=== PATIENT | female | born 1965 | race Caucasian/White ===

== ENCOUNTER 2017-10-31 10:32 | Outpatient (CLI) | payer BC, SELFPAY ==
[2017-10-31 11:50] LABS: Anion Gap 9.1 mmol/L (3-11); BUN 20 mg/dL (7-18); CO2 26.9 mmol/L (21.0-32.0); CREATININE 0.87 mg/dL (0.55-1.02); Calcium 8.8 mg/dL (8.5-10.1); Chloride 104 mmol/L (98-107); Glucose 100 mg/dL (70-100); Potassium 4.1 mmol/L (3.5-5.1); Sodium 140 mmol/L (136-145)
== END 2017-10-31 10:52 ==
PROVIDERS: PCP Student in an Organized Health Care Education/Training Program; Visit Provider Student in an Organized Health Care Education/Training Program
DX: R79.89 Other specified abnormal findings of blood chemistry (principal)
CPT/HCPCS: 36415; 80048

== ENCOUNTER 2017-11-24 16:29 | Outpatient (REF) | payer BC, SELFPAY ==
--- NOTE | 2017-11-24 13:00 | PAPFT_PTH ---
PATIENT: WERO MCCARTHY LOC: [facility] U#:[id number] AGE/SX: 52/F ROOM: RE11/24/[address]: JOEL Singh : 1965 BED: DIS: 11/24/2017 SPEC #: [id number] RECD: 11/24/17 17:14 STATUS: SHAHNAZ GRACE #: [id number] JUAN: 11/24/17 13:[address]: Pari Evnas DEPT: [facility] Cytology RECD BY: Yadira Valverde ENTERED: 11/24/17 17:14 SP TYPE: PAPFT BERNARDA DR: Kalli Hightower, Tissues: 1 - CX/ENDOCX FOR PAP SMEARS Procedures: PAP THIN PREP/UVM Screening Comments: [id number]
== END 2017-11-24 16:49 ==
LOC: LBN 16:29
PROVIDERS: PCP Student in an Organized Health Care Education/Training Program; Visit Provider Nurse Practitioner Family
DX: Z12.4 Encounter for screening for malignant neoplasm of cervix (principal)
CPT/HCPCS: 88142

== ENCOUNTER 2017-11-30 10:10 | Outpatient (CLI) | payer BC, SELFPAY ==
--- NOTE | 2017-11-30 10:08 | DI.RAD_ITS ---
SYMPTOMS/DIAGNOSIS: PATELLOFEMORAL PAIN BILATERAL MERCHANT VIEWS OF THE KNEES: Comparison is made with right knee dated [id number]. There is bilateral lateral patellar subluxation and lateral patellar tilt. There is minimal periarticular spurring.
== END 2017-11-30 10:30 ==
PROVIDERS: PCP Student in an Organized Health Care Education/Training Program; Visit Provider Physician Assistant
DX: M25.561 Pain in right knee (principal); M25.562 Pain in left knee; M22.2X2 Patellofemoral disorders, left knee; M22.2X1 Patellofemoral disorders, right knee; S83.001A Unspecified subluxation of right patella, initial encounter; S83.002A Unspecified subluxation of left patella, initial encounter
CPT/HCPCS: 73565

== ENCOUNTER 2017-12-14 00:29 | Outpatient (CLI) | payer BC, SELFPAY ==
--- NOTE | 2017-12-14 11:06 | DI.MAMMO_ITS ---
SYMPTOM/DIAGNOSIS: SCREENING, Z12.31 MAMMOGRAMS: Mammograms were interpreted according to the usual protocol including computer analysis with CAD system, tomosynthesis and C view imaging. The breasts are of moderate density with fairly symmetrical distribution of fibroglandular tissue. No dominant mass or clumped microcalcification is identified in either breast. The current examination is compared with previous examinations including 11/2016 and there has been no gross interval change in appearance in comparison with previous studies. CONCLUSION: No specific evidence of malignancy at this time. Routine screening examinations are suggested at yearly intervals due to the family history of breast carcinoma. Category 1. Breast density, category B. MQSA ASSESSMENT OF FINDINGS: Negative. Category 1. Patient will receive a letter notifying them of these results. BI-RADS category B. There are scattered areas of fibroglandular density.
== END 2017-12-14 00:49 ==
PROVIDERS: PCP Student in an Organized Health Care Education/Training Program; Visit Provider Nurse Practitioner Family
DX: Z12.31 Encounter for screening mammogram for malignant neoplasm of breast (principal); Z80.3 Family history of malignant neoplasm of breast
CPT/HCPCS: 77063; 77067

== ENCOUNTER 2018-02-22 09:14 | Outpatient (CLI) | payer BC, SELFPAY ==
--- NOTE | 2018-02-22 09:10 | DI.RAD_ITS ---
SYMPTOMS/DIAGNOSIS: PAIN RIGHT KNEE: Two views. Comparison 11/16/16. There is moderate narrowing of the medial femoral tibial joint space. Periarticular spurring is seen involving all three joint compartments. The bones appear intact. There are unchanged calcifications adjacent to the fibular head which appear chronic. There is a small joint effusion present. IMPRESSION: Mild degenerative changes of the right knee.
== END 2018-02-22 09:34 ==
PROVIDERS: PCP Nurse Practitioner Adult Health; Visit Provider Physician Assistant Surgical
DX: M25.561 Pain in right knee (principal); M17.11 Unilateral primary osteoarthritis, right knee
CPT/HCPCS: 73560

== ENCOUNTER 2018-04-27 14:53 | Outpatient (REF) | payer BC, SELFPAY | END 2018-04-27 15:13 | LOC: LBN 14:53 | PROVIDERS: PCP Nurse Practitioner Adult Health; Visit Provider Nurse Practitioner Adult Health | DX: N39.0 Urinary tract infection, site not specified (principal) | CPT/HCPCS: 87077; 87086; 87186 ==

== ENCOUNTER 2018-05-04 15:57 | Outpatient (REF) | payer BC, SELFPAY | END 2018-05-04 16:17 | LOC: LBN 15:57 | PROVIDERS: PCP Nurse Practitioner Adult Health; Visit Provider Nurse Practitioner Adult Health | DX: R35.0 Frequency of micturition (principal) | CPT/HCPCS: 87086 ==

== ENCOUNTER 2018-11-29 11:57 | Outpatient (REF) | payer BC, SELFPAY ==
--- NOTE | 2018-11-29 10:40 | PAPFT_PTH ---
PATIENT: WERO MCCARTHY LOC: [place] U#:[id number] AGE/SX: 53/F ROOM: RE11/29/[address]: JOEL Singh : 1965 BED: DIS: 11/29/2018 SPEC #: [id number] RECD: 11/29/18 12:49 STATUS: SHAHNAZ REJazmyne #: [id number] JUAN: 11/29/18 10:[address]: Pari Evans DEPT: [facility] Cytology RECD BY: Yadira Valverde ENTERED: 11/29/18 12:49 SP TYPE: PAPFT BERNARDA DR: Lela Velázquez APRN Tissues: 1 - CX/ENDOCX FOR PAP SMEARS Procedures: PAP THIN PREP/UVM Screening Comments: [id number]
[2018-11-30 14:49] LABS: Chlamydia Result Negative (Negative); GC Result Negative (Negative); Specimen Description CERVIX
== END 2018-11-29 12:17 ==
LOC: LBN 11:57
PROVIDERS: PCP Nurse Practitioner Adult Health; Visit Provider Nurse Practitioner Family
DX: Z11.3 Encounter for screening for infections with a predominantly sexual mode of transmission (principal); Z12.4 Encounter for screening for malignant neoplasm of cervix
CPT/HCPCS: 87491; 87591; 88142

== ENCOUNTER 2019-01-23 08:35 | Outpatient (CLI) | payer BC, SELFPAY ==
--- NOTE | 2019-01-23 08:01 | W.PREOPHP ---
Assessment and Plan Assessment and plan (1) Primary osteoarthritis of right knee: Status: Chronic Assessment and plan: Plan:Patient is planning on traveling to [place] via 2 hour plane ride on 02/11/19 for one week. Due to patient's travel plans she was scheduled for post-surgical follow-up 10 days following surgery. Cautioned patient on increased risk of DVT with venous stasis and travel. Educated patient on surgery covering surgical technique, recovery process, benefits and risks including but not limited to risk of infection, blood clot, damage to soft tissue/blood vessels/nerves in detail. After discussion patient gives verbal understanding of risks and elects to proceed with scheduling surgery. Patient had opportunity to have questions answered to their satisfaction. They will contact office if issues arise. Patient will continue to be scheduled for right total knee replacement with Dr. Boudreaux. History of Present Illness Narrative: Ms. Gonzalez is a 53-year-old female who presents to clinic for pre-operative exam for scheduled right total knee replacement. Patient had a right knee arthroscopy on February 22, 2017 for partially torn medial meniscus and chondromalacia patellofemoral joint. Following patient's arthroscopy she continued to have right knee pain and swelling despite attending physical therapy and injections which did not provide significant long lasting relief. Patient reports the pain as located under her kneecap and is described as an ache with swelling that worsens throughout the day. Patient reports she is hardly able to do stairs due to pain. Pain is also aggravated by kneeling and with walking. Patient has tried ibuprofen with no change in her symptoms. She has applies ice as needed which helps to alleviate pain. Patient denies any knee instability, injuries or falls. She denies any feelings of numbness or tingling. Due to her continued pain she was offered surgical intervention and elected to proceed. Pertinent Surgical Information Denies past medical history of: Hypertension, stroke, cardiac issues, angina, asthma, COPD, sleep apnea, renal issues, liver issues, hepatitis, gastrointestinal issues, ulcers, hyperlipidemia, bleeding disorders, seizures, migraines, diabetes, autoimmune disorders, thyroid issues. Reports she experienced nausea and vomiting after her right knee arthroscopy in 02/2017. Also states she was having a hot flash at the time which further aggravated her post-operatively. Denies prior complications from surgery or anesthesia. Review of Systems Constitutional Constitutional: Denies fever(s), Denies frequent falls and Denies headache(s) Eyes Eyes: Denies change in vision ENT Ears, Nose, Mouth, and Throat: Denies dizziness, Denies ear discharge, Denies headache(s), Denies epistaxis, Denies nasal discharge and Denies sore throat Cardiovascular Cardiovascular: Denies chest pain, Denies rapid heart rate, Denies irregular heart rhythm, Denies palpitations, Denies dyspnea, Denies dyspnea on exertion, Denies orthopnea, Denies paroxysmal nocturnal dyspnea and Denies slow heart rate Respiratory Respiratory: Denies cough, Denies dyspnea, Denies dyspnea on exertion and Denies wheezing Gastrointestinal Gastrointestinal: Denies abdominal pain, Denies melena, Denies hematochezia, Denies constipation, Denies diarrhea, Denies nausea and Denies vomiting Genitourinary Genitourinary: Denies hematuria, Denies dysuria and Denies urinary urgency Musculoskeletal Musculoskeletal: Reports as per HPI, Denies numbness and Denies tingling Neurologic Neurologic: Denies dizziness, Denies frequent falls, Denies headache(s), Denies numbness and Denies tingling Psychiatric Psychiatric: Denies anxiety and Reports depression Endocrine Endocrine: Denies palpitations Allergic/Immunologic Allergic/Immunologic: Denies wheezing [facility] Medical History (Updated 01/23/19 @ 08:12 by Elizabeth Tamayo) Chronic thoracic spine pain Depression (Chronic) DJD (degenerative joint disease) Family history of colorectal cancer (Chronic) F Personal history of cervical dysplasia (Acute 11/16/15) 2007 - KOURTNEY II Sleep disturbance, unspecified (Acute) Surgical History Appendectomy Bladder Surgery (~10/2009) DR. EASTMAN BUNGEMINICTFRACISCO RIGHT Cholecystectomy 2009 Colonoscopy - MAC (07/04/17) joint injection (01/15/14) Dr Galan intra-articular lumbar facet joint injection R Ligation of fallopian tube 1996 rgt medial meniscectomy/chondroplasty patella/femur (02/22/17) Family History (Updated 01/23/19 @ 08:14 by Elizabeth Tamayo) Father Diabetes Heart disease PACEMAKER Colon cancer colorectal cancer 75yo Liver and lung cancer PATERNAL AUNT Personal history of malignant neoplasm BREAST Mother No known health problems Brother Suicide Age 33, addiction Social History (Updated 01/23/19 @ 08:15 by Elizabeth Tamayo) Smoking/Tobacco Use Status: Never Alcohol Intake: current Alcohol Intake frequency: a few times a month Drug use: Never Communication Needs: None 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[employer] Current gender identity: female What is your relationship status?: Panel score (0-1 are the most socially isolated patients): 0 What type of physical activity do you participate in: none Working smoke detector in home: Yes Carbon monox detector in home: Yes Do you feel safe at home: Yes Meds Home Medications and Allergies Home Medications Medication Instructions Recorded Confirmed Type cholecalciferol (vitamin D3) 1,000 unit PO BID #200 tab-cap 05/24/17 06/28/18 Rx magnesium oxide 400 mg PO qhs #90 tab-cap 05/24/17 06/28/18 Rx escitalopram oxalate 10 mg tablet 10 mg PO DAILY #90 tab-cap 04/27/18 06/28/18 Rx Lacto.acidophilus-Bif.animalis 5 1 cap PO DAILY #200 cap 06/20/18 06/28/18 Rx billion cell sprinkle capsule mirtazapine 7.5 mg tablet 3.75 - 7.5 mg PO qhs #90 tab 01/18/19 01/18/19 Rx Allergies Allergy/AdvReac Type Severity Reaction Status Date / Time codeine AdvReac Intermediate Headache Verified 01/23/19 08:15 [From Tylenol-Codeine] Tetanus Vaccines and Toxoid AdvReac Mild Hallucinati Verified 01/23/19 08:15 ons Exam Const General: cooperative and no acute distress [facility] Head: normal to inspection, normocephalic and atraumatic Ears: external ears normal General nose exam: external nose normal and no nasal discharge Face and sinus: face symmetric Mouth: oral mucosae normal, lip normal, tongue normal and moist mucous membranes Teeth and gingiva: dentition normal Throat: posterior oropharynx normal Eyes General: appearance normal, both eyes and all related structures Pupils: PERRL EOM: EOM intact bilaterally Neck Neck: trachea midline Carotids: normal carotid upstroke Lymphatic: no lymphadenopathy noted Resp Effort & Inspection: normal respiratory effort and able to speak in complete sentences Auscultation: clear to auscultation bilaterally, no rales, no rhonchi and no wheezes Cardio Heart Sounds: S1 normal, S2 normal and no murmurs Pulses: radial pulses present bilaterally GI Palpation: soft, no hepatosplenomegaly and nontender Auscultation: normal bowel sounds Skin General skin exam: no rashes or lesions noted
[2019-01-23 09:29] LABS: Abs Immature Grans 0.01 k/cumm (0.0-0.09); Absolute Basophil Count 0.06 k/cumm (0.0-0.2); Absolute Eosinophil Count 0.23 k/cumm (0.0-0.7); Absolute Lymphocyte Count 1.06 k/cumm (1.2-3.4); Absolute Monocyte Count 0.33 k/cumm (0.11-0.7); Absolute Neutrophil Count 2.64 k/cumm (1.2-6.7); Basophils % 1.4; Eosinophils % 5.3; HGB 13.5 g/dL (12.0-15.5); Immature Grans % 0.2; Lymphocytes % 24.5; Mean Corp. HGB Concentration 33.8 g/dL (32.0-36.0); Mean Corpuscular Hemoglobin 31.1 pg (27.0-33.0); Mean Corpuscular Volume 92.2 fL (80-95); Mean Platelet Volume 9.3 fL (8.0-11.0); Monocytes % 7.6; Platelet Count 225 x1000/uL (130-400); RBC 4.34 m/cumm (4.00-5.20); RBC Distribution Width 13.6 % (11.7-14.6); White Blood Cell Count 4.33 k/cumm (4.4-10.8)
== END 2019-01-23 08:55 ==
PROVIDERS: PCP Nurse Practitioner Adult Health; Visit Provider Orthopaedic Surgery
DX: M25.561 Pain in right knee (principal); M17.11 Unilateral primary osteoarthritis, right knee; Z01.818 Encounter for other preprocedural examination; Z01.812 Encounter for preprocedural laboratory examination
CPT/HCPCS: 36415; NC; 85025

== ENCOUNTER 2019-01-28 06:00 | Inpatient (IN) | payer BC, SELFPAY ==
[2019-01-28] VITALS (31 sets, daily range): BP systolic 114–148; BP diastolic 61–110; PULSE 67–92; RESP 15–23; TEMP 35.5–36.8; O2SAT 88–99
[2019-01-28] MEDS: Bupivacaine LIPOSOME/PF 133 MG/10 ML VIAL IJ (07:45)
[2019-01-28] MEDS: Bupivacaine 0.25% Pres-Free 30 ML VIAL (07:45)
[2019-01-28] MEDS: ceFAZolin 2 GM/50 ML BAG IVPB ×4 (08:15→20:11)
[2019-01-28] MEDS: Lactated Ringers 1,000 ML 80 ML IV ×2 (09:23→10:01)
[2019-01-28] MEDS: POTASSIUM CHLORIDE/0.9% NACL 1,000 ML 125 MEQ IV ×2 (12:30→21:31)
[2019-01-28] MEDS: MORPHine 10 MG/ML VIAL IVP ×4 (12:30→14:05)
[2019-01-28] MEDS: Normal Saline Flush 10 ML SYR IV ×2 (12:31→13:05)
[2019-01-28] MEDS: HYDROcodone 5/Acetaminophen 325 TAB PO ×2 (12:32→20:01)
[2019-01-28] MEDS: Ketorolac 30 MG/ML VIAL IVP ×2 (12:46→18:10)
--- NOTE | 2019-01-28 12:54 | DI.RAD_ITS ---
EXAM: XR KNEE RT 2V AP,LAT INDICATION: check total knee components in RR. COMPARISON: XR knee RT 2V AP,lat from 02/22/2018 TECHNIQUE: 2D digital imaging was performed. FINDINGS: The patient is status post placement of a total knee prosthesis. The components appear well aligned . Anterior skin maria luz and postsurgical soft tissue air are noted.
[2019-01-28] MEDS: Docusate Sodium 100 MG CAP PO ×2 (13:10→20:01)
[2019-01-28] MEDS: Gabapentin 100 MG CAP PO ×2 (13:10→20:01)
--- NOTE | 2019-01-28 14:24 | NUR.NOTE ---
Nursing Note: Nicki Cabrera CRNA came up to see patient at 1410 regarding pain control.
[2019-01-28] MEDS: HYDROmorphone 2 MG/ML VIAL IVP ×2 (14:29→15:08)
--- NOTE | 2019-01-28 16:13 | PT.INIE ---
Date of service: 01/28/19 Time of Service: 15:34 PT Notes Visit Reasons: OA R KNEE Physical Therapy Inpatient Initial Evaluation Date: 01/28/2019 Referring Doctor: Jose Daniel Boudreaux MD PT Orders: PT CONSULT: Status post Ortho surgery. Get OOB ambulating in room this afternoon. WBAT to right leg with walker. Precautions: Fall. Standard. WBAT on right LE. Patient Profile/Admitting Diagnosis: Patient is a 53-year-old female with primary unilateral osteoarthritis of right knee and is status post right total knee arthroplasty on postoperative day 0. PMHX: Medical History (Updated 01/23/19 @ 08:12 by Elizabeth Tamayo) Chronic thoracic spine pain Depression (Chronic) DJD (degenerative joint disease) Family history of colorectal cancer (Chronic) Personal history of cervical dysplasia (Acute 11/16/15) 2007 - KOURTNEY II Sleep disturbance, unspecified (Acute) Surgical History Appendectomy Bladder Surgery (~10/2009) DR. EASTMAN BUNJAMI RIGHT Cholecystectomy 2008 Colonoscopy - MAC (07/04/17) joint injection (01/15/14) Dr Galan intra-articular lumbar facet joint injection R Ligation of fallopian tube 1996 rgt medial meniscectomy/chondroplasty patella/femur (02/22/17) Social History/Home Situation: Patient currently lives in her mother's best friend's house with 5 steps to enter that leads onto a deck with rails on both sides, another step up leads to the entrance of the house. Patient is independent with all aspects of ADLs without the need for an assistive ambulatory device nor adaptive equipment. 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 Equipment Owned/DME: None Subjective: Patient is agreeable to a PT consult. Patient reports feeling very hot in her room. She reports pain on her right knee >5/10. She complained getting a little lightheaded after transferring onto a chair. Objective: General Observation: Knee immobilizer over right Ramos dressing. IV in left UE. TEDS in left leg. Pulse oximetry on. Mental Status: Alert and oriented x4 Pain: Patient initially reported 9/10 pain half an hour earlier ROM: Right Upper Extremity: Shoulder Flexion WFL. Shoulder abduction WFL. Elbow flexion WFL. Wrist flexion WFL. Opening and closing of hand WFL. Left Upper Extremity: Shoulder Flexion WFL. Shoulder abduction WFL. Elbow flexion WFL. Wrist flexion WFL. Opening and closing of hand WFL. Right Lower Extremity: Hip flexion WFL. Hip abduction WFL. Knee flexion NT . Ankle dorsiflexion NT. Ankle plantarflexion WFL. Left Lower Extremity: Hip flexion WFL. Hip abduction WFL. Knee flexion WFL. Ankle dorsiflexion WFL. Ankle plantarflexion WFL. Strength: Right Upper Extremity: Shoulder flexors 5/5. Shoulder abductors 5/5. Elbow flexors 5/5. Elbow extensors 5/5. Circular Stuffer strong. Left Upper Extremity: Shoulder flexors 5/5. Shoulder abductors 5/5. Elbow flexors 5/5. Elbow extensors 5/5. Circular Stuffer strong. Right Lower Extremity: Hip flexors 4-/5. Hip abductors 4-/5. Knee flexors NT. Knee extensors NT. Ankle dorsiflexors 5/5. Ankle plantarflexors 5/5. Left Lower Extremity: Hip flexors 5/5. Hip abductors 5/5. Knee flexors 5/5. Knee extensors 5/5. Ankle dorsiflexors 5/5. Ankle plantarflexors 5/5. Sensation: Intact as to pain and pressure on bilateral lower extremities. Bed Mobility/Transfers: Rolling SBA Supine to sit SBA Sit to supine SBA Sit to stand SBA Stand to sit SBA Bed to chair SBA Chair to bed SBA Gait: Patient tolerated short distance ambulation of 5 feet +1 turn +1 step back to transfer from bedside to chair; she also tolerated 5 feet +1 100+5 step backs +3 sidesteps to return from the chair back to bedside requiring SBA of PT with step to gait pattern with a complaint of pain of more than 5/10 with movement and with weight bearing. Gait velocity decreased. Patient complained of being mildly lightheaded during the and of bed to chair transfer. Balance: Static Sitting: Normal Dynamic Sitting: Normal Static Standing: Fair Dynamic Standing: Fair Special Tests: Mobility Limitations Standardized [facility] 6 clicks Basic Mobility Inpatient Short Form: Raw Score: 18 CMS Score: 47% Informed Consent/Education: Patient instructed in purpose of PT consult and plan of care. Assessment: Patient is a 53-year-old female with primary unilateral osteoarthritis of right knee and is status post right total knee arthroplasty on postoperative day 0. Patient needs to be able to eventually regain independent premorbid level in antiipation of going back to work full-time whenever medically advised to do so. She is motivated to return to prior level of function. She states that between her friend and her mother, she would have adequate support at home. With adequate pain control, patient's prognosis for attaining goals below is good. Patient presents with clinical signs and symptoms consistent with current/admitting diagnoses that have resulted to mobility limitations, gait instability, generalized weakness, and impairment of motor control as demonstrated by the following impairment level findings: 1. Decreased strength to R LE major muscle groups 2. Impaired standing balance 3. Impaired activity tolerance 4. Limitation of joint range of motion in R knee 5. Postoperative pain in R knee Impairments are contributing to the following functional limitations: 1. Inability to safely ambulate without assistive device and physical assistance 2. Increase completion time for mobility ADL performance 3. Increased fall risk 4. Inability to negotiate steps alone safely Patient is assessed as a 76635 moderate complexity based on the following: History: Patient is a 53-year-old female with primary unilateral osteoarthritis of right knee and is status post right total knee arthroplasty on postoperative day 0. Examination: Demonstrable impairment in strength, balance, and range of motion with underlying impairments and functional limitations as documented above Presentation: Evolving Decision Makin moderate complexity Goals: Goals X1 week 1. Supine-Sit independent 2. Sit-Supine independent 3. Sit-Stand independent 4. Stand-Sit independent 5. Bed-Chair independent 6. Chair-Bed independent 7. Independent gait on level surface with use of least restrictive device for at least 300 feet without report of pain nor dyspnea 8. Independent stair negotiation while holding onto bilateral rails for at least 10 steps without report of pain nor dyspnea 9. Independent with home exercise program 10. Good static and dynamic standing balance/tolerance Plan of Care/Treatment Plan: 1-2x/day, 7 days/week x 1 week. Plan of care has been reviewed with the CHIEF BUSINESS DEVELOPMENT OFFICER providing the service under Physical Therapy direction. Initiate Physical Therapy intervention for strengthening, bed mobility, transfers, gait, stairs, balance training, use of assistive device. DISCHARGE RECOMMENDATIONS: May benefit from skilled physical therapy services according to orthopedic surgeon's timeline recommendations. Patient will be educated and trained on home exercise program per TKA exercise protocol in preparation for outpatient physical therapy services. TREATMENT CODE/TIME: 9716 2 x 28 minutes beginning at 15.34 PM Thank you very much for this referral. Delmy Fay PT, DPT, CLT [facility] [place], [place]
[2019-01-28] MEDS: fentaNYL 25 MCG PATCH TD (16:21)
[2019-01-28] MEDS: diphenhydrAMINE 25 MG CAP 50 MG PO ×2 (16:27→21:27)
[2019-01-28] MEDS: oxyCODONE-CR 10 MG TABCR PO (18:10)
[2019-01-28] MEDS: Cholecalciferol (Vitamin D3) 1,000 UNIT TAB 1000 UNITS PO (20:01)
[2019-01-28] MEDS: Magnesium Oxide 400 MG TAB PO (21:26)
[2019-01-28] MEDS: Zolpidem 5 MG TAB 10 MG PO (21:28)
[2019-01-28] MEDS: Mirtazapine 15 MG TAB PO (21:28)
[2019-01-29] VITALS (13 sets, daily range): BP systolic 104–131; BP diastolic 60–80; PULSE 66–82; RESP 10–16; TEMP 36.7–36.9; O2SAT 90–95
[2019-01-29] MEDS: Ketorolac 30 MG/ML VIAL IVP ×5 (00:05→23:06)
[2019-01-29] MEDS: HYDROmorphone 2 MG/ML VIAL IVP ×5 (00:06→13:49)
[2019-01-29] MEDS: Normal Saline Flush 10 ML SYR IV ×3 (00:08→23:07)
[2019-01-29] MEDS: ceFAZolin 2 GM/50 ML BAG IVPB ×2 (01:01→08:30)
[2019-01-29] MEDS: diphenhydrAMINE 25 MG CAP 50 MG PO ×4 (03:00→20:00)
[2019-01-29] MEDS: oxyCODONE-CR 10 MG TABCR PO ×2 (05:40→17:44)
[2019-01-29 07:11] LABS: HCT 35.1 % (36.0-46.0); HGB 11.7 g/dL (12.0-15.5); Mean Corp. HGB Concentration 33.3 g/dL (32.0-36.0); Mean Corpuscular Hemoglobin 31.2 pg (27.0-33.0); Mean Corpuscular Volume 93.6 fL (80-95); Mean Platelet Volume 9.1 fL (8.0-11.0); Platelet Count 274 x1000/uL (130-400); RBC 3.75 m/cumm (4.00-5.20); RBC Distribution Width 13.4 % (11.7-14.6); White Blood Cell Count 8.14 k/cumm (4.4-10.8)
[2019-01-29] MEDS: Cholecalciferol (Vitamin D3) 1,000 UNIT TAB 1000 UNITS PO ×2 (07:43→20:00)
[2019-01-29] MEDS: Multivitamin w/Minerals TAB 1 TAB PO (07:44)
[2019-01-29] MEDS: Escitalopram 10 MG TAB PO (07:44)
[2019-01-29] MEDS: Docusate Sodium 100 MG CAP PO ×3 (07:44→20:00)
[2019-01-29] MEDS: Lactobacillus Acidophilus CAP 1 CAP PO (07:44)
[2019-01-29] MEDS: Gabapentin 100 MG CAP PO ×3 (07:45→20:00)
[2019-01-29] MEDS: Pantoprazole 40 MG TABCR PO (09:13)
[2019-01-29] MEDS: POTASSIUM CHLORIDE/0.9% NACL 1,000 ML 125 MEQ IV (09:56)
--- NOTE | 2019-01-29 10:23 | PT.INTREAT ---
Date of service: 01/29/19 Time of Service: 10:23 PT Notes Visit Reasons: OA R KNEE Inpatient Physical Therapy Treatment Note [facility] Date: 01/29/19 PRECAUTIONS: Fall, WBAT R SUBJECTIVE: Sravanthi is agreeable to participating in PT. She states that she is feeling better versus yesterday, and that she had a rough night playing catch up with her pain medication. OBJECTIVE: PAIN: Patient c/o pain in R knee with ther ex and gait training. She rates it as 6/10 in a.m. BED MOBILITY/TRANSFERS Supine-sit: I with HOB flat Sit-stand: S Stand-sit: S GAIT Assistive Device: FWW Weight bearing: WBAT R Assist: SBA Distance: 80' in a.m.; 5' +50' in p.m. Deviation: Step-through gait pattern instruction in a.m.; without knee immobilizer and Ramos dressing, step to gait pattern utilized in p.m. THEREX: Patient completed a LE strengthening and stabilization program, in a supine position, as per flow sheet. She was able to perform active SLR x10 without knee immobilizer applied Ramos dressing in place in p.m. Patient's right knee active flexion is 73 degrees. She ends with Cryocuff to R knee in p.m. REMOVAL OF RAMOS DRESSING: Incision site clean, dry, and intact. No abnormal redness, blistering, or sensitivity. Replaced with Xeroform gauze, 4 x 4 gauze, paper tape, and thigh-high AJ stocking. ASSESSMENT: Patient tolerated session well with c/o R knee pain. She was able to tolerate a progression in gait distance with FWW support and SBA. She would benefit from continued gait and transfer training, as well as strengthening for improved mobility. PLAN: Continue with PT's POC TREATMENT CODE/TIME: Session 1: 30 minutes; 41826, [id number] Session 2: 40 minutes; 83580 x2, [id number]
--- NOTE | 2019-01-29 11:02 | W.NUTCONSULT ---
Date of service: 01/29/19 Time of Service: 11:02 Nutritional Consult ASSESSMENT: 53 year old obese female with DJD of lumbar spine, OA of right knee. Currently following Regular diet with intakes > 75% of meals. Not considered at nutritional risk at this time. will follow prn. screen completed by Jill Karimi MS, RD NUTRITIONAL DIAGNOSIS: Degenerative Joint Disease of Lumbar spine, OA of right knee MONITORING AND EVALUATION: will monitor po intake and weight trends Time Spent in Nutritional Counseling and Treatment: 0 time spent face to face
[2019-01-29] MEDS: Enoxaparin 40 MG/0.4 ML SYR SC (12:35)
--- NOTE | 2019-01-29 13:11 | W.PM.PROGNOT ---
Date of Service Date of service: 01/29/19 Time of Service: 13:11 Assessment and Plan Assessment and plan (1) Status post total knee replacement, left: Status: Acute Assessment and plan: Assessment: Stable postop day #1 left total knee replacement. She is actually ahead of schedule. The only thing that is keeping her from discharge at this time is her pain control. Plan: DC Ramos dressing and knee immobilizer. We will start active flexion of her knee while progressing with her mobilization. Continue multimodal pain control. DC home when fully independent and taking only p.o. pain meds. Subjective Subjective Interval history since last seen: She feels much better today. Her pain is still an issue but much less than yesterday. Exam Narrative Exam Narrative: She is afebrile. vital signs are stable. Hemoglobin is 11.7 g today. She is voiding since her [place] is been DC'd. She ambulated 80 feet today with physical therapy. She was able to do a good active straight leg raise without the immobilizer. Neurovascular examination of her left foot shows warm foot with good pulses. She has normal sensation in her toes and foot. She has good active ankle dorsiflexion. Objective Objective Clinical Data: Abnormal lab results 01/29/19 Range/Units 06:27 RBC 3.75 L (4.00-5.20) m/cumm Hgb 11.7 L (12.0-15.5) g/dL Hct 35.1 L (36.0-46.0) % Vital Signs Temperature 36.7 C 01/29/19 12:41 Temperature Source Temporal Artery Scan 01/29/19 12:41 Pulse 79 01/29/19 12:41 Pulse Rhythm Regular 01/29/19 07:50 Respiratory Rate 12 01/29/19 12:41 Respiratory Effort 01/29/19 07:50 Respiratory Depth Normal 01/29/19 07:50 Respiratory Pattern Normal 01/29/19 07:50 Blood Pressure 122/66 01/29/19 12:41 Blood Pressure Mean 77 01/29/19 07:55 Blood Pressure Position Supine 01/28/19 13:41 Pulse Oximetry 93 L 01/29/19 12:41 Respiratory End-tidal CO2 40 01/28/19 11:35 Oxygen Delivery Method Room Air 01/29/19 12:41 Oxygen Flow Rate 0 01/29/19 12:41 Pain Level 6 01/29/19 12:41 Comment 01/28/19 23:30 Intake & Output 01/28/19 01/29/19 01/29/19 23:59 11:59 23:59 Intake Total 3899.167 / 5469.167 2787.25 / 2787.25 Output Total 1375 / 1725 1630 / 1930 300 / 1930 Balance 2524.167 / 3744.167 1157.25 / 857.25 -300 / 857.25 Weight 86 kg Intake: IV 1429.167 / 2999.167 767.25 / 767.25 Oral 2470 / 2470 2019 Output: Urine 1375 / 1725 1630 / 1930 300 / 1930 Other: Urine Color Pale Pale Yellow Yellow Yellow Urine Appearance Clear Clear Clear Comment tijerina d/c'd at this time,per MD order. Voiding Methods Indwelling Catheter Laboratory Results WBC 8.14 k/cumm (4.4-10.8) 01/29/19 06:27 RBC 3.75 m/cumm (4.00-5.20) L 01/29/19 06:27 Hgb 11.7 g/dL (12.0-15.5) L 01/29/19 06:27 Hct 35.1 % (36.0-46.0) L 01/29/19 06:27 MCV 93.6 fL (80-95) 01/29/19 06:27 MCH 31.2 pg (27.0-33.0) 01/29/19 06:27 MCHC 33.3 g/dL (32.0-36.0) 01/29/19 06:27 RDW 13.4 % (11.7-14.6) 01/29/19 06:27 Plt Count 274 x1000/uL (130-400) 01/29/19 06:27 MPV 9.1 fL (8.0-11.0) 01/29/19 06:27
--- NOTE | 2019-01-29 16:06 | ROE_ITS ---
DATE OF PROCEDURE: January 28, 2019 PREOPERATIVE DIAGNOSIS: Osteoarthritis, right knee. POSTOPERATIVE DIAGNOSIS: Same. PROCEDURE: Right total knee arthroplasty. ANESTHESIA: Spinal, plus femoral nerve block. SURGEON: Jose Daniel Boudreaux M.D. CASH APPLICATIONS COORDINATOR: Bernarda Romano COMPONENTS USED: 1. Size 2.5 posterior cruciate-retaining femoral component. 2. Size 2.5 tibial component. 3. 10 mm, size 2.5 jfuvmlcmn-xaeuhluh-ycmuzogtr tibial insert. 4. 32 mm tri-pronged patella. All components were cemented. INDICATIONS: This is a 53-year-old white female with progressively disabling right knee pain. She u nderwent an arthroscopy of her knee in February of 2017, which documented medial compartment and talavera lofemoral osteoarthritis with an incidental medial meniscal tear. Unfortunately she did not obtain l mary-term relief from her arthroscopy. In fact, her pain was somewhat exacerbated following the arthr oscopy. She had done fairly well with intermittent steroid injections in her right knee every 3 to 4 months for a year. She then obtained no mcfp relief from the steroid injections and there was x -ray progression of her arthritis. Since she was experiencing increasing disability with walking and activities of daily living, total knee replacement was recommended. The risks and complications of the procedure have been explained to the patient in detail preoperatively. She feels she's reached t he point where her pain is bad enough to require a knee replacement. PROCEDURE: The patient was taken to the operating room on 01/28/19. She was placed supine on the ope rating table. A femoral nerve block was administered. A proximal tourniquet was applied to the righ t thigh and then the right lower extremity was prepped from toes to tourniquet and draped free in the usual sterile fashion. Under proximal tourniquet control, an anterior midline incision was made beginning four inches proxim al to the patella and extending to the tibial tubercle distally. The incision was carried down to th e fascia. A medial parapatellar capsular incision was made, extended proximally and longitudinally i n line with the quadriceps tendon. A medial subperiosteal release was performed. The patella was ev erted and the knee was hyperflexed. Abnormal synovium was debrided and excised. She had fairly sign ificant articular cartilage loss on the medial femoral condyle, extending into the trochlea of the fe mur. The distal femur was resected using intramedullary alignment guides and jigs. She was found to require a size 2.5 femoral component. The anterior cruciate ligament was sacrificed. The posterior cruciate ligament was recessed. Holes for the lugs of the femoral component were then drilled out. Medial and lateral meniscectomies were performed. The proximal tibia was then resected using extrame dullary alignment guides and jigs. The damaged medial tibial plateau was used as a reference point f or a 4 mm resection. She was found to require a 2.5 tibial component was well. Using the trial for the tibial component, the stem was reamed out and punched out in proper rotation alignment. Trial re duction showed full extension and excellent stability from 0 to 90 degrees of flexion using a 10 mm i nsert. Finally the patella was resected using the patellar resection guide and oscillating saw. Care was ta crystal to leave 16 mm of thickness of patella following resection. Using a sizing guide for the tri-pro nged patella, she was found to require a size 32 mm patellar component. Using the guide for the 32 m m patellar component, the holes were made for the lugs of the tri-pronged patella in proper rotation alignment. The proximal tibia was prepared for cementing with pulse irrigation lavage of saline solution and dry ing with peroxide-soaked strip sponges. One batch of gentamicin-impregnated methylmethacrylate was v acuum-mixed and then was hand-packed into the prepared tibia. Additional cement was placed in the re cesses of the undersurface of the tibial tray. The tibial tray was then inserted and impacted into p lace with the impactor and mallet and further pressurized using the trial components and extending th e knee. Excess cement was trimmed from the margins of the tibial component while the cement was stil l soft using the plastic cement removal tool. When the first batch of methylmethacrylate had cured, the trial inserts were removed. The distal femur and patella were then prepared for cementing with p ulse irrigation lavage of saline solution and drying with peroxide-soaked strip sponges. Another bat ch of gentamicin-impregnated methylmethacrylate was vacuum-mixed and hand-packed onto the prepared di stal femur and patella. Additional cement was placed on the recesses of the femoral component and th e patellar component. The femoral component was impacted into place with the impactor and mallet and further pressurized using the trial insert and extending the knee. The patellar component was press urized using the patellar clamp. Excess cement was trimmed from the margins of the femoral component and the patellar component while the cement was still soft using the plastic cement removal tool. W hen the second batch of methylmethacrylate had cured, the trial insert was removed and the patellar c lamp was removed. The posterior recesses were checked for any bone or cement debris. The knee was t hen irrigated with pulse irrigation lavage of saline solution a final time. The actual insert, poste rior cruciate-retaining, size 2.5, 10 mm thick was placed in the tibial component and reduced onto th e femoral condyles. Patellar tracking using the niuq-qi-ou-thumb was anatomic. The knee came to ful l extension and was stable to varus/valgus stressing from 0 to 90 degrees of flexion. The right knee was then flexed over soft goods and closure was begun. The wound margins were infiltrated with 0.5% Marcaine with an epinephrine solution down to the capsule and the posterior capsule was infiltrated with 0.5% Marcaine with an epinephrine solution as well. The knee was irrigated with Betadine and sa line solution and the Betadine and saline solution was allowed to stay in the knee for a minute befor e suctioning. The medial parapatellar capsular incision and the incision in the quadriceps tendon we re repaired with interrupted vzfddo-fo-jkzec sutures of #1 Vicryl suture material. The subcu was denzel roximated with interrupted #2-0 Vicryl sutures and the skin edges were approximated with skin maria luz . The patient received one gram of tranexamic acid IV prior to tourniquet inflation and received the second gram of tranexamic acid with tourniquet deflation. The wound was dressed with Xeroform gauze , sterile gauze 4x4's, ABD pads, wrapped with a Kerlix bandage and then a long-leg Ramos compression dressing was applied to the right lower extremity. The tourniquet was released. The patient tolerat ed the procedure well and she was discharged to the recovery room in good condition.
[2019-01-29] MEDS: HYDROcodone 5/Acetaminophen 325 TAB PO (16:18)
--- NOTE | 2019-01-29 18:27 | NUR.NOTE ---
Nursing Note: Patient transferred out of the ICU to room 216. Patient pre-medicated with scheduled pain medications and then ambulated out to new room with walker and SBG, tolerated well. All belongings were brought to new room by nursing staff and son.
--- NOTE | 2019-01-29 20:10 | PDOC.CMIN ---
- If Service Date Differs Date of service: 01/29/19 Time of Service: 20:10 Care Management Initial Assess REASON FOR HOSPITALIZATION:: Total R Knee Replacement PAST MEDICAL HISTORY/PAST SURGICAL HISTORY:: Medical History. Chronic thoracic spine pain. Depression (Chronic). DJD (degenerative joint disease). Family history of colorectal cancer (Chronic). Personal history of cervical dysplasia (Acute 11/16/15). 2008 - KOURTNEY II. Sleep disturbance, unspecified (Acute). Surgical History. Appendectomy. Bladder Surgery (~10/2009). DR. EASTMAN. BUNIONECTOMY RIGHT. Cholecystectomy 2008. Colonoscopy - MAC (07/04/17). joint injection (01/15/14) Dr Galan. intra-articular lumbar facet joint injection R. Ligation of fallopian tube 1996. rgt medial meniscectomy/chondroplasty patella/femur (02/22/17) PREVIOUS FUNCTIONAL STATUS/SOCIAL/FAMILY SUPPORTS:: Machelle currently lives with her mother's best friend as she is going through a divorce. The house has one level, with five stairs to get in. 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 She is independent with her ADL's at baseline. CURRENT FUNCTIONAL STATUS:: Machelle was lying in bed when CM met with her. She reported that she was tired and has not slept well at the hospital. She stated that she has some pain, but it is much less intense than it was yesterday. She reported that she worked with PT today and that they were impressed with her movement. She asked CM to be a witness to her signing her [place] AD, which CM and her primary nurse both participated in. CM will fax AD at pt's request. CM will continue to follow. ADVANCE DIRECTIVES:: CM witnessed Machelle signing her AD, as was requested by pt. CM will fax AD to [place] AD registry and access, as well as provide copies to Machelle, as requested. Has patient been provided with information about the portal?: Yes Did the patient sign up for the portal?: Yes (previously signed up) CODE STATUS:: Full Code INSURANCE COVERAGE / FINANCIAL ISSUES:: BC/BS CURRENT HOME/COMMUNITY SERVICES/EQUIPMENT:: Machelle has access to a FWW. Otherwise, no equipment or services currently. PRIMARY CARE PHYSICIAN:: Lela MacLeod, DIONI POTENTIAL DISCHARGE NEEDS:: Evaluations for further needs, follow up appointments PATIENT/FAMILY EDUCATION NEEDS:: Review discharge instructions, discussion of self care needs including Ask Me Three ANTICIPATED BARRIERS TO DISCHARGE:: None identified TRANSPORTATION:: Machelle will be transported home via private vehicle by family. PLAN:: Anticipate Machelle will return home with no additional services once medically cleared. She will follow up with Ortho, as recommended. Her family will drive her home via private vehicle when ready.
[2019-01-29] MEDS: Acetaminophen 325 MG TAB 650 MG PO (20:14)
[2019-01-29] MEDS: Zolpidem 5 MG TAB 10 MG PO (22:03)
[2019-01-29] MEDS: Magnesium Oxide 400 MG TAB PO (22:03)
[2019-01-29] MEDS: Mirtazapine 15 MG TAB PO (22:04)
[2019-01-29] MEDS: POTASSIUM CHLORIDE/0.9% NACL 1,000 ML 60 MEQ IV (23:47)
[2019-01-30 00:11] VITALS: BP 115/76; PULSE 81; RESP 18; TEMP 36.1; O2SAT 93
[2019-01-30 03:55] VITALS: BP 115/70; PULSE 93; RESP 18; TEMP 36.6; O2SAT 98
[2019-01-30] MEDS: HYDROcodone 5/Acetaminophen 325 TAB PO ×3 (04:06→19:47)
[2019-01-30] MEDS: oxyCODONE-CR 10 MG TABCR PO ×2 (06:39→17:31)
[2019-01-30] MEDS: Normal Saline Flush 10 ML SYR IV ×6 (06:39→23:28)
[2019-01-30] MEDS: Ketorolac 30 MG/ML VIAL IVP ×4 (06:39→23:28)
[2019-01-30 07:15] VITALS: BP 122/80; PULSE 89; RESP 18; TEMP 36.7; O2SAT 95
[2019-01-30 07:38] LABS: HCT 31.4 % (36.0-46.0); HGB 10.1 g/dL (12.0-15.5); Mean Corp. HGB Concentration 32.2 g/dL (32.0-36.0); Mean Corpuscular Hemoglobin 30.8 pg (27.0-33.0); Mean Corpuscular Volume 95.7 fL (80-95); Mean Platelet Volume 9.6 fL (8.0-11.0); Platelet Count 194 x1000/uL (130-400); RBC 3.28 m/cumm (4.00-5.20); RBC Distribution Width 13.5 % (11.7-14.6); White Blood Cell Count 4.44 k/cumm (4.4-10.8)
[2019-01-30] MEDS: Multivitamin w/Minerals TAB 1 TAB PO (08:18)
[2019-01-30] MEDS: Docusate Sodium 100 MG CAP PO ×3 (08:18→19:48)
[2019-01-30] MEDS: Lactobacillus Acidophilus CAP 1 CAP PO (08:18)
[2019-01-30] MEDS: Cholecalciferol (Vitamin D3) 1,000 UNIT TAB 1000 UNITS PO ×2 (08:18→19:47)
[2019-01-30] MEDS: Escitalopram 10 MG TAB PO (08:18)
[2019-01-30] MEDS: Gabapentin 100 MG CAP PO ×3 (08:18→19:48)
[2019-01-30] MEDS: Pantoprazole 40 MG TABCR PO (08:18)
--- NOTE | 2019-01-30 09:35 | PT.INTREAT ---
Date of service: 01/30/19 Time of Service: 09:35 PT Notes Visit Reasons: OA R KNEE 01/30/19 SUBJECTIVE: Sravanthi stating she is doing better today. Her pain seems to be better managed until she has to try to bend her knee. OBJECTIVE: Pt supine in bed. Agreeable to PT treatment. TRANSFERS Supine to sit: I Sit to supine: I Sit to stand: S Stand to sit: S GAIT Device: FWW Weight bearing: AT R Assist: SBA Distance: 75'x2 Deviation: Step to pattern THEREX: Pt performs light LE strengthening including QS and SLR. She performs 10 SLR actively with minor extension lag. See flow sheet. ROM: 5-70 degrees R knee ROM. STAIRS: 3-4, 2-6, 2 rails, step to pattern, SBA ASSESSMENT: Seems to have her pain better managed today. She is tolerating independent transfers and demonstrating good safety techniques with stairs and level ground ambulation. PLAN: Continue current POC progressing toward's established goals. Direct time: 30 minutes [id number], [id number] Genia Lyons PTA Clinic location: [facility] [place], [place]
[2019-01-30] MEDS: HYDROmorphone 2 MG/ML VIAL IVP ×2 (10:46→15:56)
[2019-01-30 11:00] VITALS: BP 115/69; PULSE 89; RESP 20; TEMP 36.3; O2SAT 95
--- NOTE | 2019-01-30 12:46 | W.PM.PROGNOT ---
Date of Service Date of service: 01/30/19 Time of Service: 12:46 Assessment and Plan Assessment and plan (1) Status post total knee replacement, left: Status: Acute Assessment and plan: Assessment: Postop day #2 right total knee replacement progressing well with mobilization. She is still having issues with pain. I think she benefit by resuming Toradol for another 6-8 doses rather than giving her more opioid. Plan: DC IV fluids. We will place her on scheduled Toradol 30 mg every 6 hours for another 8 doses. Would also have the nurses put her Mepilex dressing over her maria luz so that will have to keep changing the dressing. Hopefully she will have a decrease in her pain so we can discharge home tomorrow. Subjective Subjective Interval history since last seen: She is having more pain today since her last dose of Toradol was given. Otherwise she has no complaints. Exam Narrative Exam Narrative: Incision is clean and dry. She can do an active straight leg raise. She transfers and ambulates independently with a walker. Hemoglobin 10.1 g today. Neurovascular examination right foot is normal. She remains afebrile and vital signs stable. Objective Objective Clinical Data: Abnormal lab results 01/30/19 Range/Units 07:03 RBC 3.28 L (4.00-5.20) m/cumm Hgb 10.1 L (12.0-15.5) g/dL Hct 31.4 L (36.0-46.0) % MCV 95.7 H (80-95) fL Vital Signs Temperature 36.7 C 01/30/19 07:15 Temperature Source Tympanic 01/30/19 07:15 Pulse 89 01/30/19 07:15 Pulse Rhythm Regular 01/30/19 04:10 Respiratory Rate 18 01/30/19 07:15 Respiratory Effort 01/30/19 04:10 Respiratory Depth Normal 01/30/19 04:10 Respiratory Pattern Normal 01/30/19 04:10 Blood Pressure 122/80 01/30/19 07:15 Blood Pressure Mean 85 01/29/19 16:09 Blood Pressure Position Supine 01/28/19 13:41 Pulse Oximetry 95 01/30/19 07:15 Respiratory End-tidal CO2 40 01/28/19 11:35 Oxygen Delivery Method Room Air 01/30/19 07:15 Oxygen Flow Rate 0 01/30/19 07:15 Pain Level 9 01/30/19 10:46 Comment 01/28/19 23:30 Intake & Output 01/29/19 01/30/19 01/30/19 23:59 11:59 23:59 Intake Total 1641 / 4428.25 480 / 480 Output Total 525 / 2155 Balance 1116 / 2273.25 480 / 480 Intake: IV 804 / 1571.25 Oral 837 / 2857 480 / 480 Output: Urine 525 / 2155 Other: Urine Color Yellow Yellow Urine Appearance Clear Clear Urine Odor None Voiding Methods Toilet Toilet Laboratory Results WBC 4.44 k/cumm (4.4-10.8) D 01/30/19 07:03 RBC 3.28 m/cumm (4.00-5.20) L 01/30/19 07:03 Hgb 10.1 g/dL (12.0-15.5) L 01/30/19 07:03 Hct 31.4 % (36.0-46.0) L 01/30/19 07:03 MCV 95.7 fL (80-95) H 01/30/19 07:03 MCH 30.8 pg (27.0-33.0) 01/30/19 07:03 MCHC 32.2 g/dL (32.0-36.0) 01/30/19 07:03 RDW 13.5 % (11.7-14.6) 01/30/19 07:03 Plt Count 194 x1000/uL (130-400) 01/30/19 07:03 MPV 9.6 fL (8.0-11.0) 01/30/19 07:03
[2019-01-30] MEDS: Enoxaparin 40 MG/0.4 ML SYR SC (13:21)
--- NOTE | 2019-01-30 14:36 | PTTR_ITS ---
Date of service: 01/30/19 Time of Service: 14:36 PT Notes Visit Reasons: OA R KNEE 01/30/19 SUBJECTIVE: Sravanthi doing well this afternoon. She notes it feels good to be up and walking around. Increase in discomfort upon bending her knee. OBJECTIVE: Supine in bed. Agreeable to PT. TRANSFERS Supine to sit: I Sit to supine: I Sit to stand: I Stand to sit: I GAIT Device: FWW Weight bearing: AT R Assist: S Distance: 75'+120' STAIRS: 4-6, 6-4, 2 rails, step to pattern, S THEREX: Light LE strengthening and ROM activities as noted on flow sheet. ROM: R knee ROM 5-75 degrees. ASSESSMENT: Progressing well with her functional mobility and strength. No LOB with ambulation today and she is independent getting in and out of her bed. PLAN: Continue current POC. Treatment time: 25 minutes [id number], [id number] Genia Lyons, BUILDINGS AND GROUNDS SUPERVISOR
[2019-01-30 16:00] VITALS: BP 131/75; PULSE 85; RESP 18; TEMP 36.1; O2SAT 96
--- NOTE | 2019-01-30 18:00 | CMPROGNOTE_ITS ---
- If Service Date Differs Date of service: 01/30/19 Time of Service: 18:00 Care Management Progress Note S/O:Machelle was sitting up in bed when CM met with her. She was pleasant and engaged in conversation. She reported that she was feeling good, and that she had worked with PT twice today. She stated that she had a lot of pain this morning, but it had subsided. She reported that per MD, she would be staying tonight and would be reevaluated tomorrow. CM will continue to follow. A: Machelle is a 53 year old woman admitted to [facility] on 01/28/2019 for a total R Knee replacement. P: Anticipate Machelle will return home with no additional services once medically cleared. She will follow up with Ortho, as recommended. Her family will drive her home via private vehicle when ready. CM will continue to follow.
[2019-01-30 20:00] VITALS: BP 128/72; PULSE 80; RESP 17; TEMP 36.5; O2SAT 97
[2019-01-30] MEDS: Mirtazapine 15 MG TAB PO (22:09)
[2019-01-30] MEDS: Magnesium Oxide 400 MG TAB PO (22:09)
[2019-01-31 00:35] VITALS: BP 143/79; PULSE 90; RESP 18; TEMP 36.7; O2SAT 97
[2019-01-31 05:00] VITALS: BP 125/73; PULSE 91; RESP 16; TEMP 36.7; O2SAT 94
[2019-01-31] MEDS: Normal Saline Flush 10 ML SYR IV (05:00)
[2019-01-31] MEDS: Ketorolac 30 MG/ML VIAL IVP (05:00)
[2019-01-31] MEDS: oxyCODONE-CR 10 MG TABCR PO (05:01)
[2019-01-31] MEDS: HYDROcodone 5/Acetaminophen 325 TAB PO ×2 (05:58→11:16)
[2019-01-31 08:10] VITALS: BP 105/73; PULSE 80; RESP 18; TEMP 36.4; O2SAT 96
--- NOTE | 2019-01-31 08:30 | DSE_ITS ---
Date of service: 01/31/19 Time of Service: 08:30 DS: Diagnosis Discharge Diagnosis (1) Status post total knee replacement, left: Status: Acute Discharge Plan Disposition Patient Disposition: HOME Condition: Good Discharge Details Reason For Visit: OA R KNEE/R total knee replacement Admit Date/Time: 01/28/19 06:00 Admit Provider: Jose Daniel Boudreaux Attending Provider: Jose Daniel Boudreaux Primary Care Provider: Lela Velázquez Hospital Course Hospital Course: Patient was taken the operative room on the day of admission 01/28/2019 where she underwent a right total knee replaced without complications. She was mobilized per protocol by physical therapy postop. She progressed very rapidly with her mobilization. Her postop pain was significant however, and this is what delayed her discharge. She is treated with multimodal pain control. By 01/31/2019 she fell her pain had dramatically decreased. She slept well through the night and did not require any injectable opioids. She was to be discharged home and I was in agreement since she had completed all acute care goals. She was independent with transfers and ambulation. Her motion was 0 to 75 degrees of flexion of her right knee. She was afebrile. Her incision was clean and dry. Home Meds and New Rx's Prescriptions: New celecoxib 200 mg capsule 200 mg PO BID Qty: 60 RF: 0 oxycodone-acetaminophen 5-325 mg tablet 1 tab PO Q4H PRN (Reason: pain) Qty: 30 RF: 0 No Action escitalopram oxalate 10 mg tablet 10 mg PO DAILY Qty: 90 RF: 3 mirtazapine 7.5 mg tablet 3.75 - 7.5 mg PO qhs Qty: 90 RF: 3 magnesium oxide 400 MG tablet 400 mg PO qhs Qty: 90 RF: 0 cholecalciferol (vitamin D3) 1,000 UNIT capsule 1,000 unit PO BID Qty: 200 RF: 0 Probiotic 5 billion cell capsule, sprinkle 1 cap PO DAILY Qty: 200 RF: 1 Discharge Instructions Additional Instructions: May shower and get incision wet. Let the dressing fall off by itself. Elevate R leg when sitting. Apply cryocuff to R knee 4 times/day for 1 hour each time. Use long stocking during the daytime only for 2 weeks to decrease swelling in R leg. Use walker, crutches or cane as long as you limp. Walk every day as much as your pain allows. Do your knee exercises at home every day until you start physical therapy next week. Outpatient physical therapy on Monday for rehab R total knee.([facility]) Take one baby aspirin (81 mg) twice/day for 30 days to prevent blood clots in legs. Take celebrex as prescribed to decrease inflammation and swelling. Take oxycodone for breakthru pain, if needed. Follow up with on 02/11/19 at 11 AM at his office for a wound check. Referrals: Jose Daniel Boudreaux MD [ [facility] STAFF PHYSICIAN] - (F/u 02/11/19 at 11 AM at his office.) Activity:: Activity as Tolerated Equipment/Supplies:: Walker Diet:: As Tolerated Discharge Orders Discharge Orders: Discharge Order (Routine); Ordered 01/31/19 Ordered By: Jose Daniel Boudreaux DS: Summary Status at Discharge Functional status at discharge: independent ambulation Overall status at discharge: patient is progressing back to baseline Mental Status: mental status grossly normal Speech and Movement: speech and movement normal Mood: congruent mood Affect: normal affect Exam Psych Mental Status: mental status grossly normal Speech and Movement: speech and movement normal Mood: congruent mood Affect: normal affect DS: Data Vitals/I&O Vitals and I&O: Vital Signs Temperature 36.7 C 01/31/19 05:00 Temperature Source Tympanic 01/31/19 05:00 Pulse 91 H 01/31/19 05:00 Pulse Rhythm Regular 01/31/19 02:31 Respiratory Rate 16 01/31/19 05:00 Respiratory Effort 01/31/19 02:31 Respiratory Depth Normal 01/31/19 02:31 Respiratory Pattern Normal 01/31/19 02:31 Blood Pressure 125/73 01/31/19 05:00 Blood Pressure Mean 85 01/29/19 16:09 Blood Pressure Position Supine 01/28/19 13:41 Pulse Oximetry 94 L 01/31/19 05:00 Respiratory End-tidal CO2 40 01/28/19 11:35 Oxygen Delivery Method Room Air 01/31/19 05:00 Oxygen Flow Rate 0 01/31/19 05:00 Pain Level 7 01/31/19 05:58 Comment 01/28/19 23:30 Intake & Output 01/30/19 01/30/19 01/31/19 11:59 23:59 11:59 Intake Total 480 / 2002 1523 / 2003 Output Total 400 / 400 1100 / 1100 Balance 480 / 1603 1123 / 1603 -1080 / -1080 Intake: IV 1283 / 1283 Oral 480 / 720 240 / 720 Output: Urine 400 / 400 1100 / 1100 Other: Urine Color Yellow Yellow Yellow Urine Appearance Clear Clear Clear Urine Odor None Normal Stool Size Small Moderate Stool Characteristics Formed Soft Brown Voiding Methods Bedside Commode Bedside Commode Toilet PENDING SALE TO [facility] Medical History Chronic thoracic spine pain Depression (Chronic) DJD (degenerative joint disease) Family history of colorectal cancer (Chronic) F Personal history of cervical dysplasia (Acute 11/16/15) 2007 - KOURTNEY II Sleep disturbance, unspecified (Acute) Surgical History (Updated 01/29/19 @ 13:13 by Jose Daniel Boudreaux MD) Appendectomy Bladder Surgery (~10/2009) DR. 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
[2019-01-31] MEDS: Docusate Sodium 100 MG CAP PO (09:43)
[2019-01-31] MEDS: Pantoprazole 40 MG TABCR PO (09:43)
[2019-01-31] MEDS: Cholecalciferol (Vitamin D3) 1,000 UNIT TAB 1000 UNITS PO (09:43)
[2019-01-31] MEDS: Multivitamin w/Minerals TAB 1 TAB PO (09:44)
[2019-01-31] MEDS: Lactobacillus Acidophilus CAP 1 CAP PO (09:44)
[2019-01-31] MEDS: Escitalopram 10 MG TAB PO (09:44)
[2019-01-31] MEDS: Gabapentin 100 MG CAP PO (09:44)
--- NOTE | 2019-01-31 09:50 | PT.INTREAT ---
Date of service: 01/31/19 Time of Service: 09:50 PT Notes Visit Reasons: OA R KNEE/R total knee replacement Inpatient Physical Therapy Treatment Note [facility] Date: 01/31/2019 SUBJECTIVE: Sravanthi reports that she is feeling ready to go home today. She states that she is feeling much better. OBJECTIVE: Pain: Patient c/o R knee discomfort with ther ex TRANSFERS Supine to sit: I with HOB flat Sit to supine: I with HOB flat Sit to stand: I Stand to sit: I GAIT Device: FWW Weight bearing: WBAT R Assist: S Distance: 75'+120' STAIRS: Up/down 3x4 and 2x6 using B rails and a step-to pattern, independently THEREX: Patient completed a LE strengthening and stabilization program, in a supine position, as per flow sheet. Patient is able to perform active SLR x10. Her R knee AROM is 7-81 degrees. ASSESSMENT: Patient tolerated session well with minimal c/o R knee discomfort with therex. She is able to demonstrate independence with bed mobility and transfers at this time. PLAN: As per primary PT Treatment time: 30 minutes [id number], [id number] Genia Lyons, CIELO
[2019-01-31] MEDS: Fentanyl Patch Removal 1 EACH TD (10:51)
[2019-01-31 12:34] VITALS: O2SAT 96
--- NOTE | 2019-01-31 14:24 | PDOC.CMDIS ---
- If Service Date Differs Date of service: 01/31/19 Time of Service: 14:24 LACE Index Scoring Tool - Questions: Length of Stay (in days): 4 - 6 Acuity (Admit via E.D.?): No E.D. Visits: 0 - Answers: Total Score: 4 Risk of Readmission: Low Risk Care Management Discharge Reason for Hospitalization: Total R Knee Replacement Discharge Plan: Machelle will return home with no additional services at this time. She will have a follow up appointment with Ortho, as recommended. She will also follow up with PT outpatient in one week. Her friend will drive her home via private vehicle. Machelle is agreeable to the plan and states that she is happy to go home. Patient/Family Education Needs: Review discharge instructions regarding medications and activity levels, discussion of self care including Ask Me Three Services Needed at Discharge: Physical Therapy (outpatient )
--- NOTE | 2019-01-31 16:15 | PT.INDS ---
Date of service: 01/31/19 Time of Service: 16:15 PT Notes Visit Reasons: OA R KNEE/R total knee replacement Inpatient Physical Therapy Discharge Summary Dates: 01/31/2019 Dates of Service: 01/28/2019 through 01/31/2019 This is a clinical summary of care provided on the duration of dates listed above. No charge was made in the completion of this documentation. Referring Doctor: Jose Daniel Boudreaux MD PT Orders: PT CONSULT: Status post Ortho surgery. Get OOB ambulating in room this afternoon. WBAT to right leg with walker. Precautions: Fall. Standard. WBAT on right LE. Patient Profile/Admitting Diagnosis: Patient is a 53-year-old female with primary unilateral osteoarthritis of right knee and is status post right total knee arthroplasty on postoperative day 0. PMHX: Medical History (Updated 01/23/19 @ 08:12 by Elizabeth Tamayo) Chronic thoracic spine pain Depression (Chronic) DJD (degenerative joint disease) Family history of colorectal cancer (Chronic) Personal history of cervical dysplasia (Acute 11/16/15) 2007 - KOURTNEY II Sleep disturbance, unspecified (Acute) Surgical History Appendectomy Bladder Surgery (~10/2009) DR. RAIZA HYDE RIGHT Cholecystectomy 2008 Colonoscopy - MAC (07/04/17) joint injection (01/15/14) Dr Galan intra-articular lumbar facet joint injection R Ligation of fallopian tube 1996 rgt medial meniscectomy/chondroplasty patella/femur (02/22/17) Social History/Home Situation: Patient currently lives in her mother's best friend's house with 5 steps to enter that leads onto a deck with rails on both sides, another step up leads to the entrance of the house. Patient is independent with all aspects of ADLs without the need for an assistive ambulatory device nor adaptive equipment. 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 Equipment Owned/DME: None Subjective: NT Objective: General Observation: NT Mental Status: NT Pain: NT ROM: Right Upper Extremity: Shoulder Flexion WFL. Shoulder abduction WFL. Elbow flexion WFL. Wrist flexion WFL. Opening and closing of hand WFL. Left Upper Extremity: Shoulder Flexion WFL. Shoulder abduction WFL. Elbow flexion WFL. Wrist flexion WFL. Opening and closing of hand WFL. Right Lower Extremity: Hip flexion WFL. Hip abduction WFL. Knee flexion NT . Ankle dorsiflexion NT. Ankle plantarflexion WFL. Left Lower Extremity: Hip flexion WFL. Hip abduction WFL. Knee flexion WFL. Ankle dorsiflexion WFL. Ankle plantarflexion WFL. Strength: Right Upper Extremity: Shoulder flexors 5/5. Shoulder abductors 5/5. Elbow flexors 5/5. Elbow extensors 5/5. Crop Adjuster strong. Left Upper Extremity: Shoulder flexors 5/5. Shoulder abductors 5/5. Elbow flexors 5/5. Elbow extensors 5/5. Crop Adjuster strong. Right Lower Extremity: Hip flexors 4-/5. Hip abductors 4-/5. Knee flexors NT. Knee extensors NT. Ankle dorsiflexors 5/5. Ankle plantarflexors 5/5. Left Lower Extremity: Hip flexors 5/5. Hip abductors 5/5. Knee flexors 5/5. Knee extensors 5/5. Ankle dorsiflexors 5/5. Ankle plantarflexors 5/5. Sensation: Intact as to pain and pressure on bilateral lower extremities. Bed Mobility/Transfers: Rolling independent Supine to sit independent Sit to supine independent Sit to stand independent Stand to sit independent Bed to chair independent Chair to bed independent Gait: Patient tolerated short distance ambulation of 15 feet + 120 feet using a step through gait pattern with front wheeled walker and WBAT on right LE requiring only supervision. Patient also is able to tolerate up and down six 4 inch steps and four 6 inch steps with step to gait pattern while holding onto bilateral rails with supervision. Balance: Static Sitting: Normal Dynamic Sitting: Normal Static Standing: Fair Dynamic Standing: Fair Assessment: Patient is a 53-year-old female with primary unilateral osteoarthritis of right knee and is status post right total knee arthroplasty on postoperative day 0. Patient needs to be able to eventually regain independent premorbid level in antiipation of going back to work full-time whenever medically advised to do so. She is motivated to return to prior level of function. She states that between her friend and her mother, she would have adequate support at home. With adequate pain control, patient's prognosis for attaining goals below is good. Patient continues to present with clinical signs and symptoms consistent with current/admitting diagnoses that have resulted to mobility limitations, gait instability, generalized weakness, and impairment of motor control as demonstrated by the following impairment level findings: 1. Decreased strength to R LE major muscle groups 2. Impaired standing balance 3. Impaired activity tolerance 4. Limitation of joint range of motion in R knee 5. Postoperative pain in R knee Impairments continue to contribute to the following functional limitations: 1. Inability to safely ambulate without assistive device and physical assistance 2. Increase completion time for mobility ADL performance 3. Increased fall risk 4. Inability to negotiate steps alone safely Goals: Goals X1 week 1. Supine-Sit independent MET 2. Sit-Supine independent MET 3. Sit-Stand independent MET 4. Stand-Sit independent MET 5. Bed-Chair independent MET 6. Chair-Bed independent MET 7. Independent gait on level surface with use of least restrictive device for at least 300 feet without report of pain nor dyspnea NOT MET 8. Independent stair negotiation while holding onto bilateral rails for at least 10 steps without report of pain nor dyspnea NOT MET 9. Independent with home exercise program NOT MET 10. Good static and dynamic standing balance/tolerance NOT MET DISCHARGE RECOMMENDATIONS: May benefit from skilled physical therapy services according to orthopedic surgeon's timeline recommendations. Patient will be educated and trained on home exercise program per TKA exercise protocol in preparation for outpatient physical therapy services. TREATMENT CODE/TIME: FL. Thank you very much for this referral. Delmy Fay PT, DPT, CLT [facility] [place], [place]
--- NOTE | 2019-02-01 11:43 | DSE_ITS ---
DS: Diagnosis Discharge Diagnosis (1) Status post total knee replacement, right: Status: Acute Discharge Plan Disposition Patient Disposition: HOME Condition: Good Discharge Details Reason For Visit: OA R KNEE/R total knee replacement Admit Date/Time: 01/28/19 06:00 Admit Provider: Jose Daniel Boudreaux Attending Provider: Jose Daniel Boudreaux Primary Care Provider: Lela Velázquez Hospital Course Hospital Course: Patient was taken the operative room on the day of admission 01/28/2019 where she underwent a right total knee replaced without complications. She was mobilized per protocol by physical therapy postop. She progressed very rapidly with her mobilization. Her postop pain was significant however, and this is what delayed her discharge. She is treated with multimodal pain control. By 01/31/2019 she fell her pain had dramatically decreased. She slept well through the night and did not require any injectable opioids. She was to be discharged home and I was in agreement since she had completed all acute care goals. She was independent with transfers and ambulation. Her motion was 0 to 75 degrees of flexion of her right knee. She was afebrile. Her incision was clean and dry. Home Meds and New Rx's Prescriptions: New celecoxib 200 mg capsule 200 mg PO BID Qty: 60 RF: 0 oxycodone-acetaminophen 5-325 mg tablet 1 tab PO Q4H PRN (Reason: pain) Qty: 30 RF: 0 No Action escitalopram oxalate 10 mg tablet 10 mg PO DAILY Qty: 90 RF: 3 mirtazapine 7.5 mg tablet 3.75 - 7.5 mg PO qhs Qty: 90 RF: 3 magnesium oxide 400 MG tablet 400 mg PO qhs Qty: 90 RF: 0 cholecalciferol (vitamin D3) 1,000 UNIT capsule 1,000 unit PO BID Qty: 200 RF: 0 Probiotic 5 billion cell capsule, sprinkle 1 cap PO DAILY Qty: 200 RF: 1 Discharge Instructions Instructions: Precautions after Total Joint Replacement Surgery (GEN) Additional Instructions: May shower and get incision wet. Let the dressing fall off by itself. Elevate R leg when sitting. Apply cryocuff to R knee 4 times/day for 1 hour each time. Use long stocking during the daytime only for 2 weeks to decrease swelling in R leg. Use walker, crutches or cane as long as you limp. Walk every day as much as your pain allows. Do your knee exercises at home every day until you start physical therapy next week. Outpatient physical therapy on Monday for rehab R total knee.([facility]) Take one baby aspirin (81 mg) twice/day for 30 days to prevent blood clots in legs. Take celebrex as prescribed to decrease inflammation and swelling. Take oxycodone for breakthru pain, if needed. Follow up with on 02/11/19 at 11 AM at his office for a wound check. Stand Alone Forms: Nursing Discharge Form Referrals: Jose Daniel Boudreaux MD [ [facility] STAFF PHYSICIAN] - 02/11/19 11:00 am (F/u 02/11/19 at 11 AM at his office.) Activity:: Activity as Tolerated Equipment/Supplies:: Walker Diet:: As Tolerated Discharge Orders Discharge Orders: Discharge Order (Routine); Ordered 01/31/19 Ordered By: Jose Daniel Boudreaux Discharge Data Discharge Date/Time-TO BE ENTERED AT DEPARTURE: 01/31/19 11:22 DS: Summary Status at Discharge Functional status at discharge: independent ambulation Overall status at discharge: patient is progressing back to baseline Mental Status: mental status grossly normal Speech and Movement: speech and movement normal Mood: congruent mood Affect: normal affect Exam Psych Mental Status: mental status grossly normal Speech and Movement: speech and movement normal Mood: congruent mood Affect: normal affect DS: Data Vitals/I&O Vitals and I&O: Vital Signs Temperature 36.4 C L 01/31/19 08:10 Temperature Source Tympanic 01/31/19 08:10 Pulse 80 01/31/19 08:10 Pulse Rhythm Regular 01/31/19 08:42 Respiratory Rate 18 01/31/19 08:10 Respiratory Effort Non-Labored 01/31/19 08:42 Respiratory Depth Normal 01/31/19 08:42 Respiratory Pattern Normal 01/31/19 08:42 Blood Pressure 105/73 01/31/19 08:10 Blood Pressure Mean 85 01/29/19 16:09 Blood Pressure Position Supine 01/28/19 13:41 Pulse Oximetry 96 01/31/19 12:34 Respiratory End-tidal CO2 40 01/28/19 11:35 Oxygen Delivery Method Room Air 01/31/19 12:34 Oxygen Flow Rate 0 12/12/19 12:34 Pain Level 0 01/31/19 08:10 Comment 01/28/19 23:30 Intake & Output 01/31/19 01/31/19 02/01/19 11:59 23:59 11:59 Intake Total 380 / 380 Output Total 1100 / 1100 Balance -720 / -720 Intake: IV Oral 360 / 360 Output: Urine 1100 / 1100 Other: Urine Color Yellow Urine Appearance Clear Urine Odor Normal Stool Size Moderate Stool Characteristics Soft Brown Voiding Methods Toilet [facility] Medical History Chronic thoracic spine pain Depression (Chronic) DJD (degenerative joint disease) Family history of colorectal cancer (Chronic) F Personal history of cervical dysplasia (Acute 11/16/15) 2007 - KOURTNEY II Sleep disturbance, unspecified (Acute) Surgical History (Updated 02/01/19 @ 11:44 by Jose Daniel Boudreaux MD) Appendectomy Bladder Surgery (~10/2009) DR. 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
== END 2019-01-31 11:22 | disposition home or self-care (01) | DRG 470 ==
LOC: PDS 09:31 → ICU 11:30 → MS 01-30 09:59
PROVIDERS: Admitting Provider Orthopaedic Surgery; PCP Nurse Practitioner Adult Health; Visit Provider Orthopaedic Surgery
PROC: 0SRC0J9 Replacement of Right Knee Joint with Synthetic Substitute, Cemented, Open Approach (ICD-10-PCS; CPT 27447; principal; 2019-01-28 08:15)
DX: M17.11 Unilateral primary osteoarthritis, right knee (principal); Z96.651 Presence of right artificial knee joint; G89.18 Other acute postprocedural pain; F32.9 Major depressive disorder, single episode, unspecified
CPT/HCPCS: 27447; 36415; 76942; 81025; 85027; 97110; 97162; 97530; J1650; NC; 73560; J0131; J0690; J1100; J1885; J2250; J2270; J2370; J2405; J3010; J3490; L1830

== ENCOUNTER 2019-03-14 01:32 | Outpatient (CLI) | payer BC, SELFPAY ==
--- NOTE | 2019-03-14 12:45 | DI.MAMMO_ITS ---
EXAM: MG MAMMO SCREENING CLINICAL HISTORY: SCREENING, Z12.39. TECHNIQUE: Bilateral full field digital CC and MLO mammographic images were obtained with 3D tomosyn thesis and utilizing computer aided detection (CAD). COMPARISON: Available for comparison. FINDINGS: Masses/Architectural Distortion: None seen. Microcalcifications: No suspicious pleomorphic-type are seen. Skin Thickening/Nipple Retraction: None. IMPRESSION: 1. No significant interval change with no specific features of malignancy noted. 2. Unless there is more urgent need, screening mammography is recommended, as per [place] [employer] guidelines. ACR BI-RAD Category- 1 Negative Breast Density - Category B - Scattered areas of fibroglandular density A negative radiographic report should not delay biopsy if a dominant or clinically suspicious mass is present. Up to ten percent of cancers are not identified on mammography. A negative report may reinforce clinical impression. Adenosis and dense breasts may obscure an underlying neoplasm. False positive reports average 6 to 10%. Patient will receive a letter notifying them of these results.
== END 2019-03-14 01:52 ==
PROVIDERS: PCP Nurse Practitioner Adult Health; Visit Provider Nurse Practitioner Family
DX: Z12.31 Encounter for screening mammogram for malignant neoplasm of breast (principal)
CPT/HCPCS: 77063; 77067

== ENCOUNTER 2019-04-04 16:30 | Outpatient (REF) | payer BC, SELFPAY | END 2019-04-04 16:50 | LOC: LBN 16:30 | PROVIDERS: PCP Nurse Practitioner Adult Health; Visit Provider Nurse Practitioner Adult Health | DX: R30.0 Dysuria (principal) | CPT/HCPCS: 87077; 87086; 87186 ==

== ENCOUNTER 2019-12-02 13:17 | Outpatient (REF) | payer BC, SELFPAY ==
--- NOTE | 2019-12-02 11:30 | PAPFT_PTH ---
PATIENT: WERO MCCARTHY LOC: [facility] U#:[id number] AGE/SX: 54/F ROOM: RE12/02/[address]: JOEL Singh : 1965 BED: DIS: 12/02/2019 SPEC #: [id number] RECD: 12/02/19 13:23 STATUS: SHAHNAZ REQ #: [id number] JUAN: 12/02/19 11:[address]: Pari Evans DEPT: [facility] Cytology RECD BY: Yadira Valverde ENTERED: 12/02/19 13:23 SP TYPE: PAPFT BERNARDA DR: Lela Velázquez APRN Tissues: 1 - CX/ENDOCX FOR PAP SMEARS Procedures: PAP THIN PREP/UVM Screening HPV DNA PROBE Comments: [id number]
== END 2019-12-02 13:37 ==
LOC: LBN 13:17
PROVIDERS: PCP Nurse Practitioner Adult Health; Visit Provider Nurse Practitioner Family
DX: Z12.4 Encounter for screening for malignant neoplasm of cervix (principal); Z11.51 Encounter for screening for human papillomavirus (HPV); Z87.410 Personal history of cervical dysplasia
CPT/HCPCS: 88142; 87624

== ENCOUNTER 2019-12-04 01:31 | Outpatient (CLI) | payer BC, SELFPAY ==
--- NOTE | 2019-12-04 08:00 | DI.US_ITS ---
EXAM: US PELVIS TRANSVAGINAL CLINICAL HISTORY: heavy bleeding,menorrhagia,n92.0. TECHNIQUE: Transabdominal and transvaginal pelvic ultrasound was performed using standard protocol. COMPARISON: No exams were available for comparison FINDINGS: KIDNEYS: Kidneys are symmetric in size. No evidence of renal calculi. No evidence of hydronephrosis. No renal mass or cyst identified. Liver: Increased echogenicity of the visualized portions of the liver suggests fatty infiltration. UTERUS: Position: Anteverted. Size: 8.6 long by 4.0 AP by 4.5 transverse cm Endometrium: 1.2 cm. Within normal limits for this premenopausal patient. Myometrium: 1.2 x 1.5 x 1.5 cm echogenic nodule in the fundal myometrium suspicious for a fibroid. Cervix: Several nabothian cysts. OVARIES: Right: 2.2 x 0.8 x 0.9 cm Cyst or mass: Small follicular cysts. Left: 1.9 x 0.9 x 1.1 cm Cyst or mass: Small follicular cysts. DOPPLER: Color: Symmetric and uniform flow to both ovaries. No hyperemia. Duplex: Normal ovarian arterial waveforms visualized. CUL-DE-SAC: Free fluid: None. Other: Adjacent to the right ovary there is a 3.9 x 1.9 x 2.5 cm simple cyst. This may be an ovarian cyst or paraovarian cyst. Pathology related to the fallopian tube cannot be excluded. Other pelvic cystic lesions cannot be excluded. IMPRESSION: 1. Normal sonographic appearance of the kidneys. 2. Findings suggestive of fatty infiltration of the liver. 3. Endometrial stripe measures 1.2 cm. This is within normal limits in a premenopausal patient. 4. Unremarkable bilateral ovaries. 5. 3.9 x 1.9 x 2.5 cm simple cystic lesion adjacent to the right ovary. Please see the above discuss ion for complete details. If further imaging is warranted a CT or MRI of the pelvis should be consid ered. DATA REPOSITORY:
== END 2019-12-04 01:51 ==
PROVIDERS: PCP Nurse Practitioner Adult Health; Visit Provider Nurse Practitioner Family
DX: N92.0 Excessive and frequent menstruation with regular cycle (principal); R93.89 Abnormal findings on diagnostic imaging of other specified body structures
CPT/HCPCS: 76830; 76856

== ENCOUNTER 2019-12-04 02:24 | Outpatient (CLI) | payer BC, SELFPAY ==
[2019-12-04 13:52] LABS: TSH (W/Ref FT4) 1.75 uIU/mL (0.36-3.74)
== END 2019-12-04 02:44 ==
PROVIDERS: PCP Nurse Practitioner Adult Health; Visit Provider Nurse Practitioner Family
DX: N92.0 Excessive and frequent menstruation with regular cycle (principal)
CPT/HCPCS: 36415; 84443

== ENCOUNTER 2019-12-13 02:00 | Outpatient (CLI) | payer BC, SELFPAY ==
[2019-12-13 14:34] LABS: Abs Immature Grans 0.01 10^3/uL (0.0-0.06); Absolute Basophil Count 0.07 10^3/uL (0.0-0.2); Absolute Eosinophil Count 0.31 10^3/uL (0.0-0.7); Absolute Lymphocyte Count 1.39 10^3/uL (1.2-3.4); Absolute Monocyte Count 0.37 10^3/uL (0.1-0.8); Absolute Neutrophil Count 3.88 10^3/uL (1.2-6.7); Basophils % 1.2; Eosinophils % 5.1; HCT 38.8 % (36.0-46.0); HGB 13.2 g/dL (11.2-15.7); Immature Grans % 0.2; Lymphocytes % 23.1; MCH 31.5 pg (27.0-33.0); MCV 92.6 fL (80-95); MPV 9.6 fL (8.0-11.0); Monocytes % 6.1; Neutrophils % 64.3; Nucleated RBC 0 %; Platelet Count 218 10^3/uL (130-400); RBC 4.19 10^6/uL (3.93-5.22); RDW 12.1 % (11.7-14.6); RDW-SD 40.9 fL; WBC 6.03 10^3/uL (4.4-10.8)
== END 2019-12-13 02:20 ==
PROVIDERS: PCP Nurse Practitioner Adult Health; Visit Provider Obstetrics & Gynecology
DX: Z01.818 Encounter for other preprocedural examination (principal); N95.0 Postmenopausal bleeding
CPT/HCPCS: 36415; 86850; 86900; 86901; 85025

== ENCOUNTER 2019-12-13 08:38 | Outpatient (CLI) | payer BC, SELFPAY ==
[2019-12-14 03:01] LABS: COVID-19 RT-PCR UVMMC Result Negative (Negative)
== END 2019-12-13 08:58 ==
PROVIDERS: PCP Nurse Practitioner Adult Health; Visit Provider Obstetrics & Gynecology
DX: Z11.59 Encounter for screening for other viral diseases (principal); Z01.818 Encounter for other preprocedural examination
CPT/HCPCS: U0003

== ENCOUNTER 2019-12-18 06:02 | Day surgery (SDC) | payer BC, SELFPAY ==
[2019-12-18] VITALS (7 sets, daily range): BP systolic 119–152; BP diastolic 66–97; PULSE 70–83; RESP 13–27; TEMP 36.2–36.4; O2SAT 92–99
[2019-12-18] MEDS: Lactated Ringers 1,000 ML 125 ML IV (06:43)
[2019-12-18] MEDS: Lidocaine 1% Multi-Dose 50 ML VIAL (07:54)
--- NOTE | 2019-12-18 08:00 | ENDO_PTH ---
PATIENT: WERO MCCARTHY LOC: [facility] U#:[id number] AGE/SX: 54/F ROOM: RE12/18/[address]: Abhijeet Arreaga MD : 1965 BED: DIS: 12/18/2019 SPEC #: [id number] RECD: 12/18/19 12:40 STATUS: SHAHNAZ REQ #: [id number] JUAN: 12/18/19 08:[address]: Abhijeet Arreaga DEPT: Surgical Specimen RECD BY: Yadira Valverde ENTERED: 12/18/19 12:43 SP TYPE: Endo OTHR DR: Lela Velázquez APRN Tissues: 1 - ENDOCERVICAL BX/CURRETTE 2 - ENDOMETRIUM BX/CURRETTE Procedures: GROSS AND MICRO LEVEL 4 Comments: [id number] ([place]#)
--- NOTE | 2019-12-18 08:07 | W.PM.OP ---
Date of service: 12/18/19 Time of Service: 08:07 Operative Note Operative Note DATE OF PROCEDURE: 12/18/19 PRE-OP DIAGNOSIS: Postmenopausal bleeding POST-OP DIAGNOSIS: same PROCEDURE: Hysteroscopy D&C SURGEON: Abhijeet Arreaga ANESTHESIA: MAC ESTIMATED BLOOD LOSS: 10 PATHOLOGY: other (1. Endocervical curettings 2. Endometrial curettings) COMPLICATIONS: None Patient was transported to: PACU Findings: 1. Thin atrophic endometrium on hysteroscopic exam with what appears to be a submucosal fibroid along the posterior wall near the fundus. 2. Hypotrophic appearing glands within the endocervix Procedure Description: The patient was taken to the operating room after adequate sedation was achieved patient was placed in lithotomy position. The patient was prepped and draped in usual sterile manner. A weighted speculum was placed in the vagina with good visualization of the cervix. The anterior lip of the cervix was grasped with a single-tooth tenaculum. A paracervical block with 10 cc of 1% plain lidocaine solution was instilled. The 5 mm 30 degree hysteroscope with normal saline distention media was advanced without difficulty. There were hypertrophic appearing glandular endocervical canal. The hysteroscope was advanced into the endometrial cavity which appeared normal with a thin and atrophic appearing endometrium. Near the fundus along the posterior wall appeared to be a partially submucosal fibroid that was not amenable to resection. Fractional D&C was performed with endocervical curettings collected with a Kevorkian curette. Sharp curette was used to obtain endometrial curettings. The specimen was submitted separately. The procedure was concluded at this point. All instrumentation was removed. Sponge, lap and needle counts were correct at conclusion of the procedure and the patient transferred to PACU in stable condition.
[2019-12-18] MEDS: fentaNYL 100 MCG/2 ML VIAL IVP ×2 (08:15→08:20)
[2019-12-18] MEDS: HYDROmorphone 2 MG/ML VIAL IVP ×2 (08:25→08:39)
[2019-12-18] MEDS: HYDROcodone 5/Acetaminophen 325 TAB PO (09:31)
--- NOTE | 2019-12-18 09:43 | W.PM.DSUDISC ---
Discharge Plan Disposition Patient Disposition: HOME Condition: Good Discharge Details Reason For Visit: PMB Attending Provider: Abhijeet Arreaga Primary Care Provider: Lela Velázquez Home Meds and New Rx's Prescriptions: New hydrocodone-acetaminophen 5-325 mg Tablet 1 tab PO Q6H PRNQty: 10 RF: 0 Continued mirtazapine 7.5 mg tablet 3.75 - 7.5 mg PO qhs PRN (Reason: insomnia) Qty: 90 RF: 3 magnesium oxide 400 MG tablet 400 mg PO qhs Qty: 90 RF: 0 cholecalciferol (vitamin D3) 1,000 UNIT capsule 1,000 unit PO BID Qty: 200 RF: 0 Probiotic 5 billion cell capsule, sprinkle 1 cap PO DAILY Qty: 200 RF: 1 escitalopram oxalate 10 mg tablet 10 mg PO DAILY Qty: 90 RF: 3 Discharge Instructions Stand Alone Forms: [facility] Post Gynecology Surgery[facility]ise ([facility]) DS: Diagnosis Discharge Diagnosis (1) Thickened endometrium: Status: Acute (2) Post-menopausal bleeding: Status: Acute
== END 2019-12-18 10:30 | disposition home or self-care (01) ==
PROVIDERS: PCP Nurse Practitioner Adult Health; Visit Provider Obstetrics & Gynecology
PROC: 0UDB8ZZ Extraction of Endometrium, Via Natural or Artificial Opening Endoscopic (ICD-10-PCS; CPT 58558; principal; 2019-12-18 07:30)
DX: N95.0 Postmenopausal bleeding (principal); F32.9 Major depressive disorder, single episode, unspecified; Z80.0 Family history of malignant neoplasm of digestive organs
CPT/HCPCS: 58558; 88305; J1100; J1885; J2250; J2405; J2704; J3010